=== PATIENT | female | born 1930 | race Caucasian/White ===

== ENCOUNTER 2017-08-04 12:59 | Inpatient (IN) | payer OTHER ==
[~2017-08-04] VITALS: Ht 152.4 cm; Wt 80.3 kg
[2017-08-04 13:03] VITALS: BP 180/64
--- NOTE | 2017-08-04 13:05 | NUR ---
Patient [facility]IBA [facility] from SNF, transferred to bed 3. RN evaluating patient at bedside.
--- NOTE | 2017-08-04 13:10 | NUR ---
86 YO FEMALE BIB EMS FROM [facility] FOR ALTERED LOC. DENIES N/V/D; SKIN IS PINK/WARM/DRY; AAOX4; LUNGS CLEAR BL; HR EVEN AND REGULAR; PT DENIES ANY FEVER, CP, SOB, OR COUGH AT THIS TIME; PATIENT STATES PAIN OF 0/10 AT THIS TIME; VSS; PATIENT POSITIONED FOR COMFORT; HOB ELEVATED; BEDRAILS UP X2; BED DOWN. ER MD MADE AWARE OF PT STATUS.
--- NOTE | 2017-08-04 13:42 | NUR ---
DR SOLO EVALUATING AAO PT WITH SON AT BEDSIDE
[2017-08-04] MEDS ORDERED: NACL 0.9% 1,000 ML IV ONE (13:55)
[2017-08-04 14:15] LABS: BASOPHILS # (AUTO) 0.2 K/uL (0.00-0.22); EOSINOPHILS # (AUTO) 0.2 K/uL (0-0.4); HEMATOCRIT 36.9 % (36-48); HEMOGLOBIN 12.8 g/dL (12.0-16.0); MEAN CORPUSCULAR HEMOGLOBIN 30 pg (27-31); MEAN CORPUSCULAR HGB CONC 35 g/dL (33-37); MEAN CORPUSCULAR VOLUME 87 fL (80-94); MONOCYTES # (AUTO) 0.7 K/uL (0.8-1.0); PLATELET COUNT (AUTO) 224 K/uL (140-450); RED BLOOD CELL COUNT(AUTO) 4.25 MIL/uL (4.20-5.40); RED CELL DISTRIBUTION WIDTH 13.3 % (11.6-13.7); WHITE BLOOD COUNT (AUTO) 7.1 K/uL (4.8-10.8)
[2017-08-04] MEDS ORDERED: POTA10TE30 PO (14:20)
[2017-08-04] MEDS ORDERED: AMLO5TAB PO (14:20)
[2017-08-04] MEDS ORDERED: METO50TE2 PO (14:20)
[2017-08-04] MEDS ORDERED: LOSA100T25 PO (14:20)
[2017-08-04] MEDS ORDERED: ASPI81CT89 PO (14:20)
[2017-08-04] MEDS ORDERED: CALC-53 PO (14:20)
[2017-08-04] MEDS ORDERED: DOCU-299 PO (14:20)
[2017-08-04] MEDS ORDERED: DIT5 PO (14:20)
[2017-08-04] MEDS ORDERED: FERR325E14 PO (14:20)
[2017-08-04] MEDS ORDERED: ACET-2619 PO (14:20)
[2017-08-04] MEDS ORDERED: CEPH250C16 PO (14:20)
[2017-08-04] MEDS ORDERED: POLY10SO3 OP (14:20)
[2017-08-04] MEDS ORDERED: [UNRECOGNIZED DRUG - CODE] PO (14:20)
[2017-08-04 14:29] LABS: ANION GAP 11.7 (8-16); CARBON DIOXIDE 24.1 mmol/L (21-32); CHLORIDE 111 mmol/L (98-107); CREATININE 0.9 mg/dL (0.6-1.3); GLUCOSE 133 mg/dL (74-106); POTASSIUM 3.8 mmol/L (3.5-5.1); SODIUM SERUM 143 mmol/L (136-145); UREA NITROGEN, BLOOD 15 mg/dL (7-18)
[2017-08-04 14:44] LABS: ASPARTATE AMINOTRANSFERASE 28 U/L (15-37); TOTAL BILIRUBIN 0.7 mg/dL (0.0-1.0)
[2017-08-04 15:30] LABS: APPEARANCE,URINE CLEAR (CLEAR); BILIRUBIN,URINE NEGATIVE (NEGATIVE); BLOOD, URINE TRACE-I (NEGATIVE); COLOR,URINE YELLOW (YELLOW); LEUKOCYTE ESTERASE ,URINE NEGATIVE (NEGATIVE); NITRITE, URINE NEGATIVE (NEGATIVE); UGLUCOSE NEGATIVE (NEGATIVE)
[2017-08-04 15:43] LABS: RBC,URINE 0-5 (RARE) /HPF (0-5); WBC,URINE NONE SEEN /HPF (0-5)
[2017-08-04] MEDS: NACL 0.9% 1,000 ML IV SCH (16:16)
[2017-08-04] MEDS ORDERED: ACETAMINOPHEN 325 MG TAB PO PRN (16:20)
[2017-08-04] MEDS ORDERED: HYDROcodone/APAP 7.5/325 MG 1 TAB PO PRN (16:20)
[2017-08-04] MEDS ORDERED: ONDANSETRON 4 MG/2 ML VIAL IVP PRN (16:20)
[2017-08-04 17:20] LABS: PROTHROMBIN TIME 10.1 secs (10.8-13.4)
[2017-08-04 17:23] LABS: BARBITURATE, URINE NEG. ng/ml (NEG <=200); BENZODIAZEPINE, URINE NEG. ng/mL (NEG <=200); CANNABINOID, URINE NEG. ng/mL (NEG <=50); COCAINE, URINE NEG. ng/mL (NEG <=300); OPIATE, URINE NEG. ng/mL (NEG <=2000); PHENCYCLIDINE SCREEN,URINE NEG. ng/mL (NEG <=25)
[2017-08-04 17:26] LABS: FREE T4 (FREE THYROXINE) 1.22 ng/dL (0.76-1.46); MAGNESIUM 1.9 mg/dL (1.8-2.4); PHOSPHORUS 2.6 mg/dL (2.5-4.9); THYROID STIMULATING HORMONE 1.37 uIU/mL (0.34-3.74)
[2017-08-04] MEDS ORDERED: hydrALAZINE 20 MG/ML VIAL IVP ONE (17:30)
--- NOTE | 2017-08-04 18:20 | NUR ---
Patient will be admitted to care of DR HAMILTON. Admited to TELE. Will go to room 122A. Belongings list completed. Report to KIMBERLYN RIGGINS.
[2017-08-04 18:35] VITALS: BP 203/80
--- NOTE | 2017-08-04 18:35 | NUR ---
PT BROUGHT IN FROM ER IN [facility], PT AWAKE, RESP EVEN UNLABORED, SKIN WARM DRY COLOR WNL, IV TO LEFT AC INTACT, SKIN CHECKED, SKIN INTACT, PT AND FAMILY ORIENTED TO ROOM AND FLOOR, CALL BEGUM WITHIN REACH, SIDE RAILS UP, WILL CONTINUE TO MONITOR.
--- NOTE | 2017-08-04 18:45 | NUR ---
HYDRALAZINE GIVEN PER ORDER FOR BP 203/80, HR 88, DR ARREDONDO MADE AWARE. WILL RECHECK BP
[2017-08-04 19:05] VITALS: BP 164/65
--- NOTE | 2017-08-04 19:05 | NUR ---
BP 164/65, HR 79, AFTER HYDRALAZINE IV. PT REMAINS AWAKE ALERT, RESP EVEN UNLABORED, REMAINS ON TITLE PROCESSOR, FAMILY AT BEDSIDE, WILL CONTINUE TO MONITOR.
--- NOTE | 2017-08-04 19:25 | NUR ---
REPORT GIVEN TO GOLD LAYER NURSE, PT IN STABLE CONDITION.
--- NOTE | 2017-08-04 19:26 | NUR ---
RECEIVED REPORT FROM DAY NURSE GILSON SOFIA. PT IN STABLE CONDITION NO S/S OF DISTRESS NOTED. PT JUST ARRIVED TO THE UNIT AT 1835 FROM ER. PT IS AAO AND BUT CONFUSED PER FAMILY. SON STATES THAT PT DOES HAVE EARLY DEMENTIA BUT SHE NORMALLY IS ABLE TO TALK AND IS NOT CONFUSED. SON STATES SHE HAS BEEN CONFUSED AND NOT TALKING MUCH SINCE 08/02/17. PT DX ALTERED MENTAL STATUS. HX PROVIDED BY SON DUE TO MOTHERS CONDITION. PTS DAUGHTER REQUESTS TO STAY AT THE BEDSIDE OVER NIGHT. IV TO L FA 20G, PATENT AND INTACT. SKIN IS INTACT. SKIN IS WARM AND DRY TO TOUCH. PT IS ON ROOM AIR. INITIAL PLAN OF CARE DISCUSSED WITH PT AND FAMILY AT THE BEDSIDE, FAMILY VERBALIZED UNDERSTANDING. ALL SAFETY PRECAUTIONS MET, CALL LIGHT WITHIN REACH, WILL CONTINUE TO MONITOR
[2017-08-04 19:30] VITALS: BP 142/62
--- NOTE | 2017-08-04 19:45 | NUR ---
PAGED DR. GRIER PER FAMILY REQUEST TO TALK TO A
--- NOTE | 2017-08-04 19:55 | NUR ---
DR. GRIER IN TO SEE PT AND TALK WITH THE FAMILY
--- NOTE | 2017-08-04 20:00 | NUR ---
PAGED DR. GRIER TO ASK IF SHE STILL WANTS TO CONTINUE NS 80 ML/HR BECAUSE OF PTS HIGH BLOOD PRESSURE. SHE STATED YES AND TO CARRY OUT ORDERS
--- NOTE | 2017-08-04 20:00 | NUR ---
PTS B/P IS GOING DOWN 142/62 NO S/S OF DISTRESS NOTED. WILL CONTINUE TO MONITOR
[2017-08-04] MEDS: ASPIRIN 81 MG TAB.CHEW PO SCH (20:06)
[2017-08-04] MEDS: DOCUSATE SODIUM 100 MG GELCAP PO SCH (20:07)
--- NOTE | 2017-08-04 20:07 | NUR ---
MEDICATIONS ADMINISTERED WITH APPLE SAUCE. FAMILY GIVEN EDUCATION ON MEDICATION PURPOSES AND SIDE EFFECTS. VERBALIZED UNDERSTANDING. PT IS NON VERBAL AT THIS TIME AND CONFUSED. PT TOLERATED WELL, WILL CONTINUE TO MONITOR
[2017-08-04] MEDS ORDERED: METOPROLOL SUCCINATE 50 MG TABER PO SCH (21:00)
[2017-08-04] MEDS: hydrALAZINE 20 MG/ML VIAL IVP PRN (23:47)
--- NOTE | 2017-08-04 23:47 | NUR ---
PTS BP 162/77 AT THIS TIME. HYDRALAZINE GIVEN PER PRN ORDERS FOR SYSTOLIC ABOVE 160. WILL REASSESS
[2017-08-05] VITALS (7 sets, daily range): BP systolic 134–176; BP diastolic 63–81
--- NOTE | 2017-08-05 00:47 | NUR ---
PTS BP REASSESSED AND IS NOW 156/118, PAGED DR. GRIER
--- NOTE | 2017-08-05 00:50 | NUR ---
DR. GRIER PAGED BACK NO NEW ORDERS AT THIS TIME. WILL CONTINUE TO MONITOR
[2017-08-05] MEDS: NACL 0.9% 1,000 ML IV SCH ×2 (04:46→17:16)
[2017-08-05] MEDS: hydrALAZINE 20 MG/ML VIAL IVP PRN ×2 (06:34→21:22)
--- NOTE | 2017-08-05 06:34 | NUR ---
BP IS 165/90 AT THIS TIME, HYDRALAZINE GIVEN
--- NOTE | 2017-08-05 07:40 | NUR ---
GAVE REPORT TO DAY NURSE BETH SOFIA FOR CONTINUITY OF CARE, PT IN STABLE CONDITION. NO S/S OF DISTRESS NOTED
--- NOTE | 2017-08-05 07:41 | NUR ---
RECEIVED REPORT FROM FURNITURE STAINER NURSE. PATIENT LYING IN BED SLEEPING, AROUSABLE BY VOICE. NO DISTRESS NOTED. FLACC 0. RESPIRATIONS EVEN, UNLABORED, ON ROOM AIR. AAOX1, CONFUSED, SKIN COLOR APPROPRIATE TO ETHNICITY, WARM TO TOUCH. SKIN IS INTACT. LUNGS CTA ON ALL LOBES. IV SITE IS INTACT, PATENT AND INFUSING IVF PER ORDERS. ABDOMEN SOFT, NON-DISTENDED. REVIEWED PLAN OF CARE WITH PATIENT. PATIENT VERBALIZED UNDERSTANDING. SAFETY MEASURES IN PLACE, CALL LIGHT WITHIN REACH FALL PREVENTIONS IN PLACE. WILL CONTINUE TO MONITOR.
[2017-08-05] MEDS ORDERED: TRIMETHOPRIM OP SCH (09:00)
[2017-08-05] MEDS ORDERED: amLODIPine 5 MG TAB PO SCH ×2 (09:00→16:35)
[2017-08-05] MEDS ORDERED: POLYMYXIN B SULF OP SCH (09:00)
--- NOTE | 2017-08-05 09:01 | NUR ---
PATIENT HAS BEEN SCREENED AND CATEGORIZED HIGH NUTRITION RISK. PATIENT WILL BE SEEN WITHIN 1-2 DAYS OF ADMISSION. 08/04/17-08/05/[address]
--- NOTE | 2017-08-05 09:40 | NUR ---
PATIENT LYING DOWN IN BED SLEEPING, AROUSABLE BY VOICE AND SHAKING. NO DISTRESS NOTED. FLACC 0. SCHEDULED MEDICATIONS DUE GIVEN. SAFETY MEASURES IN PLACE, CALL LIGHT WITHIN REACH. WILL CONTINUE TO MONITOR.
[2017-08-05] MEDS: DOCUSATE SODIUM 100 MG GELCAP PO SCH ×2 (09:48→21:00)
[2017-08-05] MEDS: ASPIRIN 81 MG TAB.CHEW PO SCH ×2 (09:48→21:00)
[2017-08-05] MEDS: FERROUS SULFATE 325 MG TABEC PO SCH (09:48)
[2017-08-05] MEDS: OXYBUTYNIN 5 MG TAB PO SCH (09:48)
[2017-08-05] MEDS: CALCIUM CARB/VIT-D 500 MG/200 IU 1 TAB PO SCH (09:48)
[2017-08-05] MEDS: METOPROLOL 50 MG TAB PO SCH ×2 (09:55→21:00)
[2017-08-05] MEDS: LOSARTAN 50 MG TAB PO SCH (09:55)
--- NOTE | 2017-08-05 11:10 | NUR ---
P.T. NOTES RECEIVED P.T. EVAL ORDER, JUST CAME IN, CHART REVIEWED, UPON ARRIVAL AT BEDSIDE PT WAS JUST ABOUT TO HAVE AN US TEST. COMMUNICATED WITH NRSG WILL SEE PT FOR P.T.EVAL TOMORROW ORDER JUST CAME IN AND US TECH STATED ANOTHER 30 MINS TO FINISH TEST/ NURSE AGREEABLE P.T. EVAL ORDER JUST CAME IN. PVE
--- NOTE | 2017-08-05 12:10 | NUR ---
PATIENT LYING DOWN IN BED WITH FAMILY MEMBERS AT BEDSIDE. NO DISTRESS NOTED. CONDITION UNCHANGED. PATIENT CONTINUES TO BE DROWSY. SAFETY MEASURES IN PLACE, CALL LIGHT WITHIN REACH. WILL CONTINUE TO MONITOR.
[2017-08-05 12:39] LABS: BASOPHILS # (AUTO) 0.1 K/uL (0.00-0.22); BASOPHILS % (AUTO) 1.1 % (0.0-2.0); EOSINOPHILS # (AUTO) 0.1 K/uL (0-0.4); EOSINOPHILS % (AUTO) 0.8 % (0.0-4.0); HEMATOCRIT 35.6 % (36-48); HEMOGLOBIN 12.2 g/dL (12.0-16.0); LYMPHOCYTES # (AUTO) 0.8 K/uL (2.5-16.5); LYMPHOCYTES % (AUTO) 8.3 % (20.5-51.1); MEAN CORPUSCULAR HEMOGLOBIN 30 pg (27-31); MEAN CORPUSCULAR HGB CONC 34 g/dL (33-37); MEAN CORPUSCULAR VOLUME 86 fL (80-94); MONOCYTES # (AUTO) 0.9 K/uL (0.8-1.0); MONOCYTES % (AUTO) 9.8 % (1.7-9.3); NEUTROPHILS # (AUTO) 7.2 K/uL (1.8-7.7); PLATELET COUNT (AUTO) 220 K/uL (140-450); RED BLOOD CELL COUNT(AUTO) 4.13 MIL/uL (4.20-5.40); WHITE BLOOD COUNT (AUTO) 9.1 K/uL (4.8-10.8)
[2017-08-05 12:58] LABS: CARBON DIOXIDE 24.5 mmol/L (21-32); CHLORIDE 112 mmol/L (98-107); CREATININE 0.8 mg/dL (0.6-1.3); GLUCOSE 147 mg/dL (74-106); POTASSIUM 3.5 mmol/L (3.5-5.1); SODIUM SERUM 143 mmol/L (136-145); UREA NITROGEN, BLOOD 13 mg/dL (7-18)
[2017-08-05 13:02] LABS: MAGNESIUM 1.9 mg/dL (1.8-2.4); PHOSPHORUS 2.9 mg/dL (2.5-4.9)
--- NOTE | 2017-08-05 14:15 | NUR ---
PATIENT LYING DOWN IN BED SLEEPING, AROUSALBE BY VOICE AND SHAKING. FLACC 0. ASSISTED CLEAN ROOM TECHNICIAN IN CLEANING PATIENT AND REPOSITIONING. SAFETY MEASURES IN PLACE, CALL LIGHT WITHIN REACH. WILL CONTINUE TO MONITOR.
--- NOTE | 2017-08-05 15:00 | NUR ---
FAMILY MEMBER REQUESTED TO SPEAK TO THE PHYSICIAN. DR. HUBBARD NOTIFIED AND MD WILL SEE PATIENT ONCE SHE HAS TIME. WILL CONTINUE TO MONITOR.
--- NOTE | 2017-08-05 15:06 | NUR ---
08/05/17 RD INITIAL ASSESSMENT COMPLETED PLEASE REFER TO NUTRITION ASSESSMENT UNDER CARE ACTIVITY FOR ESTIMATED NUTRITIONAL NEEDS. 1.DIET ORDER TO BE ADJUSTED PER IDENTIFICATION TECHNICIAN RECOMMENDATIONS AFTER SWALLOW EVAL COMPLETED 2.RD TO FOLLOW-UP 2-3 DAYS, HIGH RISK BRITTANY CALLAHAN, KATY
--- NOTE | 2017-08-05 17:00 | NUR ---
PATIENT'S IV LINE IS LEAKING. REMOVED IV LINE WITH MINIMAL BLOOD AND LUMEN COMPLETELY INTACT. NEW IV LINE INSERTED ON LEFT HAND #20 GAUGE ON FIRST ATTEMPT. PATIENT TOLERATED PROCEDURE WELL. SAFETY MEASURES IN PLACE, CALL LIGHT WITHIN REACH. WILL CONTINUE TO MONITOR.
--- NOTE | 2017-08-05 18:49 | NUR ---
* ST NOTE * Pt seen at bedside w/daughter present. Pt asleep upon entering room. Upon awakening, pt alert but lethargic. Bedside dysphagia and oral mechanism exams completed. See evaluation report for further details. Pt unable to tolerate thin liquids via a spoon, demonstrating labial leakage out of oral cavity. Pt accepting 2/2 PO trials of 1-3 CCs of puree apple sauce via a spoon, displaying delays in AP bolus transit as well as delay in swallow initiation and impaired laryngeal elevation at this time. Pt also accepting 2/2 alternating PO trials of nectar-thick apple juice 1-3 CCs at a time as well, once again demonstrating impaired AP bolus transit and delay in swallow initiation. Pt then exhibiting delayed residual cough after conclusion of PO feeding trials, suggesting a moderate oropharyngeal dysphagia. It is recommended pt receive skilled INTAKE SPECIALIST services to further assess pt's tolerance for PO intake at this time, and it is also recommended pt remain NPO at this time pending further therapeutic feeding trials, w/pt's daughter & nsg agreeable. Pt, caregiver/daughter & caregiver/nsg education completed regarding results of evaluation; benefits of receiving skilled INTAKE SPECIALIST services and abiding by NPO status; POC; and prognosis for improvement; with pt indifferent 2/2 to lethargy but caregiver/daughter and caregiver/nsg verbalizing understanding and agreement w/clinician's recommendations. Recommend: - NPO 2/2 to lethargy and pt demonstrating moderate oropharyngeal dysphagia - Complete oral hygiene frequently ST to follow up x1 in next 1-2 days to re-assess pt's tolerance for PO intake. G8996 CM G8997 CL NOMS Level 5 Time In/Out 18:10 - 18:40
--- NOTE | 2017-08-05 19:28 | NUR ---
GAVE REPORT TO ORTHOPEDIC PHYSICIAN NURSE FOR CONTINUITY OF CARE. PATIENT IN STABLE CONDITION.
--- NOTE | 2017-08-05 19:40 | NUR ---
RECEIVED REPORT FROM AM NURSE. PT FAMILY AT BEDSIDE. PT SLEEPING IN BED, AROUSABLE TO TOUCH, ABLE TO WEAKLY OPEN EYES WITH ASSISTANCE, UNABLE TO VERBALIZE NEEDS. COAL HAULER OPERATOR IN PLACE. NO S/S OF ACUTE DISTRESS. SCDs IN PLACE. IV ACCESS ASYMPTOMATIC, PATENT AND INTACT. IVF INFUSING WELL. DISCUSSED AND REVIEWED PLAN OF CARE WITH PT. PT APHASIC AT THIS TIME, PT'S FAMILY VERBALIZED UNDERSTANDING. WILL CONTINUE WITH CONSTANT REINFORCEMENT. ALL NEEDS MET. SAFETY MEASURES ENSURED. CALL LIGHT WITHIN REACH. WILL CONTINUE TO MONITOR.
--- NOTE | 2017-08-05 21:28 | NUR ---
CALLED DR GRIER, MADE MD AWARE THAT PT HAD SWALLOW EVAL TODAY WITH RECOMMENDATION OF NPO DUE TO DYSPHAGIA. ALSO MADE MD AWARE THAT PT IS SLEEPING, LETHARGIC UPON AROUSAL TO TOUCH, UNABLE TO SWALLOW DUE PO MEDICATIONS ASPIRIN, COLACE AND METOPROLOL AT THIS TIME. ALSO MADE MD AWARE OF BP 156/81 AND HR 87, WHICH IS NOT YET WITHIN THE PARAMETERS FOR HYDRALAZINE IVP PRN FOR SBP>160 AND DBP>100. RECEIVED ORDERS TO GIVE HYDRALAZINE IVP PRN AT THIS TIME. ADMINISTERED HYDRALAZINE IVP PRN WITH EDUCATION. WILL CONTINUE WITH CONSTANT REINFORCEMENT. ALL NEEDS MET. IVF INFUSING WELL. SAFETY MEASURES ENSURED. CALL LIGHT WITHIN REACH. WILL CONTINUE TO MONITOR.
--- NOTE | 2017-08-05 23:52 | NUR ---
PT AWAKE, OPENS EYES SPONTANEOUSLY, NONVERBAL. FLACC 0, NO S/S OF ACUTE DISTRESS. SPO2 95% ON ROOM AIR, RR 24 EVEN AND SLIGHTLY TACHYPNIC AT BASELINE. PT INCONTINENT IN URINE, PT CLEANED, TURNED AND REPOSITIONED BY CNAs. PT TOLERATED WELL. ALL NEEDS MET. IVF INFUSING WELL. SAFETY MEASURES ENSURED. CALL LIGHT WITHIN REACH. WILL CONTINUE TO MONITOR.
[2017-08-06] VITALS: BP 154/64
[2017-08-06] MEDS: NACL 0.9% 1,000 ML IV SCH ×2 (02:15→22:23)
[2017-08-06 04:00] VITALS: BP 155/59
--- NOTE | 2017-08-06 04:15 | NUR ---
PT SLEEPING COMFORTABLY, NO S/S OF ACUTE DISTRESS PT INCONTINENT IN URINE, PT CLEANED, TURNED AND REPOSITIONED BY CNAs. PT TOLERATED WELL. ALL NEEDS MET. IVF INFUSING WELL. SAFETY MEASURES ENSURED. CALL LIGHT WITHIN REACH. WILL CONTINUE TO MONITOR.
--- NOTE | 2017-08-06 07:15 | NUR ---
ENDORSED PLAN OF CARE TO AM NURSE. CONDITION STABLE
--- NOTE | 2017-08-06 07:15 | NUR ---
RECIEVED PT FROM FLOWER POT PRESS OPERATOR NURSE. PT STABLE. PT IN HER BED WITH HER EYE CLOSED.
--- NOTE | 2017-08-06 07:35 | NUR ---
Patient's Plan of Care was discussed and reviewed with BIG DATA ADMIN: ARAMIS
[2017-08-06 07:57] LABS: BASOPHILS # (AUTO) 0.1 K/uL (0.00-0.22); BASOPHILS % (AUTO) 1.3 % (0.0-2.0); EOSINOPHILS # (AUTO) 0.2 K/uL (0-0.4); EOSINOPHILS % (AUTO) 2.2 % (0.0-4.0); HEMATOCRIT 36.1 % (36-48); HEMOGLOBIN 12.2 g/dL (12.0-16.0); LYMPHOCYTES # (AUTO) 1.3 K/uL (2.5-16.5); LYMPHOCYTES % (AUTO) 15.8 % (20.5-51.1); MEAN CORPUSCULAR HEMOGLOBIN 30 pg (27-31); MEAN CORPUSCULAR HGB CONC 34 g/dL (33-37); MEAN CORPUSCULAR VOLUME 89 fL (80-94); MONOCYTES # (AUTO) 0.9 K/uL (0.8-1.0); MONOCYTES % (AUTO) 10.8 % (1.7-9.3); NEUTROPHILS # (AUTO) 5.9 K/uL (1.8-7.7); NEUTROPHILS % (AUTO) 69.9 % (42.2-75.2); PLATELET COUNT (AUTO) 217 K/uL (140-450); RED BLOOD CELL COUNT(AUTO) 4.04 MIL/uL (4.20-5.40); RED CELL DISTRIBUTION WIDTH 13.6 % (11.6-13.7); WHITE BLOOD COUNT (AUTO) 8.4 K/uL (4.8-10.8)
[2017-08-06 08:31] LABS: ANION GAP 12.2 (8-16); CHLORIDE 111 mmol/L (98-107); CREATININE 0.7 mg/dL (0.6-1.3); GLUCOSE 120 mg/dL (74-106); POTASSIUM 3.2 mmol/L (3.5-5.1); SODIUM SERUM 143 mmol/L (136-145); UREA NITROGEN, BLOOD 14 mg/dL (7-18)
[2017-08-06 08:35] LABS: MAGNESIUM 1.9 mg/dL (1.8-2.4); PHOSPHORUS 2.5 mg/dL (2.5-4.9)
[2017-08-06] MEDS: FERROUS SULFATE 325 MG TABEC PO SCH (09:00)
[2017-08-06] MEDS: LOSARTAN 50 MG TAB PO SCH (09:00)
[2017-08-06] MEDS: DOCUSATE SODIUM 100 MG GELCAP PO SCH ×2 (09:00→21:00)
[2017-08-06] MEDS ORDERED: POTASSIUM CHLORIDE 10 MEQ TABER PO SCH (09:00)
[2017-08-06] MEDS: CALCIUM CARB/VIT-D 500 MG/200 IU 1 TAB PO SCH (09:00)
[2017-08-06] MEDS: amLODIPine 5 MG TAB PO SCH (09:00)
[2017-08-06] MEDS: OXYBUTYNIN 5 MG TAB PO SCH (09:00)
[2017-08-06] MEDS: ASPIRIN 81 MG TAB.CHEW PO SCH ×2 (09:00→21:00)
[2017-08-06] MEDS: METOPROLOL 50 MG TAB PO SCH ×2 (09:00→21:00)
--- NOTE | 2017-08-06 09:00 | NUR ---
PT STABLE SLEEP FAMILY AT BEDSIDE. ORDER CLAIFIED PT NPO FOR SWALLOW STUDY
--- NOTE | 2017-08-06 12:30 | NUR ---
FAMILY AT BEDSIDE PT UNABLE TO SPEAK. PT UNABLE TO MOVE HER ARMS.
[2017-08-06 13:45] VITALS: BP 164/68
[2017-08-06] MEDS: hydrALAZINE 20 MG/ML VIAL IVP PRN ×2 (16:14→20:38)
--- NOTE | 2017-08-06 17:53 | NUR ---
* ST TX NOTE * Pt seen at bedside w/daughter present. Pt alert but not verbalizing at this time. Pt tolerating 2/2 alternating PO trials of puree apple sauce 1-3 CCs at a time via a spoon as well as 2/2 alternating PO trials of honey-thick apple juice 1-3 CCs at a time via a spoon, all demonstrating 10-20+ second delay in AP bolus transit but exhibiting laryngeal elevation at this time, as compared to yesterday where pt did not demonstrate swallow initiation, laryngeal elevation or excursion. Pt still presenting with 5-10 second delay in swallow initiation however. Pt also exhibiting oral labial leakage of HTL in 2/2 trials. Pt demonstrating minimal to moderate improvement as compared to initial evaluation, but delay in AP bolus transit as well as delay in swallow initiation still place pt at high risk for premature spillage as well as aspiration and thus aspiration PNA. Pt, caregiver/daughter and caregiver/nsg education completed regarding results of skilled ADVANCED PRACTICE PSYCHIATRIC NURSE tx at this time. It is thus recommended pt remain NPO at this time, w/ST to follow up x1 in next 1-5 days to re-assess pt's tolerance for PO intake, w/pt indifferent but daughter & nsg verbalizing understanding and agreement w/clinician's recommendations and POC. Recommend: - Pt remain NPO at this time. ST to ff x1 in next 1-5 days to further assess pt's tolerance for PO intake. G8997 CM NOMS Level 6 Time In/Out 17:30 - 18:00
[2017-08-06 19:01] VITALS: BP 204/70
--- NOTE | 2017-08-06 19:32 | NUR ---
PATIENT REPORT RECEIVED FROM MORNING NURSE AT BEDSIDE. PATEINT'S FAMILY IS AT BEDSIDE. PATIENT IS APHASIC. EYE OPENING IS SPONTANEOUS. NO SIGNS AND SYMPTOMS OF DISTRESS NOTED AT THIS TIME. FLACC-0. IV SITE NOTED ON LEFT HAND, ASYMPTOMATIC, INTACT AND PATENT. PATIENT IS ON ROOM AIR. PLAN OF CARE DISCUSSED WITH PATIENT AND FAMILY, FAMILY VERBALIZED UNDERSTANDING. BED IN LOWEST POSITION, SIDE RAILS UP AND CALL LIGHT WITHIN REACH. WILL CONTINUE TO MONITOR.
--- NOTE | 2017-08-06 21:00 | NUR ---
ACCORDING TO MORNING NURSE, SPEECH THERAPIST RECOMMENDED TO KEEP PATIENT NPO. PATIENT WILL BE RECHECKED BY SPEECH THERAPIST TOMORROW. UNABLE TO ADMINISTER 2100 MEDS DUE TO PATIENT'S IMPAIRED SWALLOWING
--- NOTE | 2017-08-06 22:00 | NUR ---
PATIENT REPOSITIONED FOR COMFORT. PATIENT TOLERATED WELL. WILL CONTINUE TO MONITOR
--- NOTE | 2017-08-06 23:00 | NUR ---
PATIENT VOIDED. PERICARE DONE AND PADS WERE CHANGED. PATIENT TOLERATED WELL. PATIENT REPOSITIONED FOR COMFORT. WILL CONTINUE TO MONITOR.
[2017-08-06] MEDS ORDERED: KCL 20 MEQ/WATER INJ PREMIX 100 ML IV ONE (23:55)
[2017-08-07] VITALS (10 sets, daily range): BP systolic 154–195; BP diastolic 60–81
[2017-08-07] MEDS: hydrALAZINE 20 MG/ML VIAL IVP PRN ×3 (00:39→12:03)
--- NOTE | 2017-08-07 02:00 | NUR ---
PATIENT REPOSITIONED FOR COMFORT. PATIENT TOLERATED WELL. WILL CONTINUE TO MONITOR.
--- NOTE | 2017-08-07 04:00 | NUR ---
PATIENT VOIDED. PERICARE DONE AND PADS WERE CHANGED. PATIENT TOLERATED WELL. PATIENT REPOSITIONED FOR COMFORT. WILL CONTINUE TO MONITOR.
--- NOTE | 2017-08-07 04:00 | NUR ---
PATIENT'S BLOOD PRESSURE CONSISTENTLY ELEVATED DESPITE BEING GIVEN PRN BLOOD PRESSURE MEDS. DR. GRIER AWARE.
--- NOTE | 2017-08-07 05:42 | NUR ---
DR. WOLFF ALSO AWARE OF PATIENT'S BLOOD PRESSURE
[2017-08-07 06:58] LABS: BASOPHILS # (AUTO) 0.1 K/uL (0.00-0.22); BASOPHILS % (AUTO) 0.6 % (0.0-2.0); EOSINOPHILS # (AUTO) 0.2 K/uL (0-0.4); EOSINOPHILS % (AUTO) 1.6 % (0.0-4.0); HEMATOCRIT 35.6 % (36-48); LYMPHOCYTES % (AUTO) 10.3 % (20.5-51.1); MEAN CORPUSCULAR HEMOGLOBIN 30 pg (27-31); MEAN CORPUSCULAR HGB CONC 34 g/dL (33-37); MEAN CORPUSCULAR VOLUME 90 fL (80-94); MONOCYTES # (AUTO) 0.9 K/uL (0.8-1.0); MONOCYTES % (AUTO) 9.8 % (1.7-9.3); NEUTROPHILS # (AUTO) 7.3 K/uL (1.8-7.7); NEUTROPHILS % (AUTO) 77.7 % (42.2-75.2); PLATELET COUNT (AUTO) 194 K/uL (140-450); RED BLOOD CELL COUNT(AUTO) 3.97 MIL/uL (4.20-5.40); RED CELL DISTRIBUTION WIDTH 13.6 % (11.6-13.7); WHITE BLOOD COUNT (AUTO) 9.5 K/uL (4.8-10.8)
--- NOTE | 2017-08-07 07:13 | NUR ---
PATIENT REPORT GIVEN TO MORNING NURSE AT BEDSIDE. PATIENT IS IN STABLE CONDITION.
--- NOTE | 2017-08-07 07:15 | NUR ---
Patient's Plan of Care was discussed and reviewed with AIR CONDITIONING EQUIPMENT MECHANIC: ARAMIS PINEDA LVN.
--- NOTE | 2017-08-07 07:15 | NUR ---
RECIEVE PT CARE FROM PM NURSE. PT LYING IN HER BED WITH HER EYES CLOSED. PT FAMILY AT HER BEDSIDE
[2017-08-07 07:27] LABS: ANION GAP 11.8 (8-16); CARBON DIOXIDE 21.5 mmol/L (21-32); CHLORIDE 113 mmol/L (98-107); CREATININE 0.7 mg/dL (0.6-1.3); GLUCOSE 128 mg/dL (74-106); POTASSIUM 3.3 mmol/L (3.5-5.1); SODIUM SERUM 143 mmol/L (136-145); UREA NITROGEN, BLOOD 17 mg/dL (7-18)
--- NOTE | 2017-08-07 08:00 | NUR ---
PT B/P IS OUT OF RANGE. NOTIFIED
[2017-08-07] MEDS: METOPROLOL 50 MG TAB PO SCH ×3 (09:00→20:57)
[2017-08-07] MEDS: CALCIUM CARB/VIT-D 500 MG/200 IU 1 TAB PO SCH (09:00)
[2017-08-07] MEDS: LOSARTAN 50 MG TAB PO SCH (09:00)
[2017-08-07] MEDS: DOCUSATE SODIUM 100 MG GELCAP PO SCH ×2 (09:00→20:56)
[2017-08-07] MEDS: amLODIPine 5 MG TAB PO SCH (09:00)
[2017-08-07] MEDS: FERROUS SULFATE 325 MG TABEC PO SCH (09:00)
[2017-08-07] MEDS: ASPIRIN 81 MG TAB.CHEW PO SCH ×2 (09:00→20:56)
[2017-08-07] MEDS: OXYBUTYNIN 5 MG TAB PO SCH (09:00)
--- NOTE | 2017-08-07 09:00 | NUR ---
UNABLE TO GIVE MEDS PT IS NPO
[2017-08-07] MEDS ORDERED: POTASSIUM CHLORIDE 40 MEQ, LIDOCAINE 1% 25 MG in NACL 0.9% 250 ML IV ONE (11:00)
--- NOTE | 2017-08-07 12:00 | NUR ---
PT IN HER BED WITH HER EYE CLOSED PT SON IS AT HER BEDSIDE MEDICATION GIVE
--- NOTE | 2017-08-07 12:05 | NUR ---
ADMINISTERED POTASSIUM IV. PATIENT SHOWS NO S/S OF ACUTE DISTRESS AT THIS TIME. ARAMIS VINCENT AND FAMILY AT BEDSIDE. PATIENT BP IS ELEVATED. V/S CHARTED WILL ADMINISTER PRN MEDICATION FOR HIGH BP.
--- NOTE | 2017-08-07 12:07 | NUR ---
ADMINISTERED HYDRALAZINE 10 MG IVP. WILL REASSESS BP IN ONE HR.
--- NOTE | 2017-08-07 12:10 | NUR ---
NOTIFIED ARAMIS PINEDA LVN ABOUT ORDER FOR INSERTION OF NGT AND LET HER KNOW IF ANY ASSISTANCE IS NEEDED.
--- NOTE | 2017-08-07 13:00 | NUR ---
PT B/P CONTINUE TO STAY OUT OF RANGE INFORMED MD
--- NOTE | 2017-08-07 13:03 | NUR ---
ARAMIS VINCENT AWARE OF BP OF 171/60 HR 101. WILL CONTINUE TO MONITOR.
--- NOTE | 2017-08-07 14:30 | NUR ---
PT PULSE 124 AND B/P ELEVATED RECIEVED IV ORDER
[2017-08-07] MEDS ORDERED: LABETALOL 100 MG/20 ML VIAL IVP SCH (14:43)
--- NOTE | 2017-08-07 14:53 | NUR ---
ADMINISTERED IV LABETALOL 10MG FOR BP OF 195/73 HR 124. WILL REASSESS IN 30 MIN.
[2017-08-07] MEDS: NACL 0.9% 1,000 ML IV SCH (17:31)
--- NOTE | 2017-08-07 18:00 | NUR ---
PT B/P IS DECREASED TO 164/70.
--- NOTE | 2017-08-07 19:20 | NUR ---
RECIEVED PATIENT FROM ARAMIS SOFIA . PATIENT ON BED NON VERBAL OPEN HER EYES WHEN NAME CALLED ABLE TO MOVE HER LEFT ARMS AND HAND RIGHT ARMS WEAK. FAMILY ON THE BEDSIDE. NGT INTACT ON LEFT NARE ON ROOM AIR BREATHING EVEN AND UNLABORED. WILL CONTINUE MONITORING AND KEPT PATIENT COMFORTABLE.
--- NOTE | 2017-08-07 19:20 | NUR ---
GAVE REPORT AND CARE TO PM NURSE. INFORMED NURSE OF PT B/P TODAY.
[2017-08-08] MEDS: hydrALAZINE 20 MG/ML VIAL IVP PRN (03:53)
[2017-08-08 04:00] VITALS: BP 158/87
--- NOTE | 2017-08-08 07:06 | NUR ---
VITAL SIGNS MONITORED AND KEPT PATIENT CONFORTABLE OVERNIGHT . WILL PASS ON THE CARE TO DAY SHIFT NURSE.
--- NOTE | 2017-08-08 07:30 | NUR ---
RECEIVED PT ON BED ASLEEP, AROUSABLE, NON VERBAL. NO SIGNS OF PAIN AT THIS TIME. WITH NGT TO LEFT NARES IN PLACE. 5 MLS RESIDUAL NOTED. IV TO LT HAND PATENT AND INTACT. CHEST, DIMINISHED AIR ENTRY TO THE BASES, OTHERWISE CLEAR. ABDOMEN SOFT, BOWEL SOUNDS PRESENT. WILL REPOSITION PT EVERY 2 HRS. PT'S SON AT THE BEDSIDE, INSTRUCTED TO CALL FOR ASSISTANCE, CALL LIGHT WITHIN REACH, VERBALIZED UNDERSTANDING.
[2017-08-08 08:00] VITALS: BP 156/80
[2017-08-08 08:12] LABS: BASOPHILS # (AUTO) 0.1 K/uL (0.00-0.22); BASOPHILS % (AUTO) 0.8 % (0.0-2.0); EOSINOPHILS # (AUTO) 0.1 K/uL (0-0.4); EOSINOPHILS % (AUTO) 1.2 % (0.0-4.0); HEMATOCRIT 34.3 % (36-48); HEMOGLOBIN 11.6 g/dL (12.0-16.0); LYMPHOCYTES # (AUTO) 0.9 K/uL (2.5-16.5); MEAN CORPUSCULAR HEMOGLOBIN 30 pg (27-31); MEAN CORPUSCULAR HGB CONC 34 g/dL (33-37); MEAN CORPUSCULAR VOLUME 89 fL (80-94); MONOCYTES # (AUTO) 1.1 K/uL (0.8-1.0); MONOCYTES % (AUTO) 10.8 % (1.7-9.3); NEUTROPHILS # (AUTO) 8.1 K/uL (1.8-7.7); NEUTROPHILS % (AUTO) 78.2 % (42.2-75.2); PLATELET COUNT (AUTO) 217 K/uL (140-450); RED BLOOD CELL COUNT(AUTO) 3.84 MIL/uL (4.20-5.40); RED CELL DISTRIBUTION WIDTH 13.4 % (11.6-13.7); WHITE BLOOD COUNT (AUTO) 10.3 K/uL (4.8-10.8)
[2017-08-08 08:16] LABS: ANION GAP 12.9 (8-16); CARBON DIOXIDE 23.5 mmol/L (21-32); CHLORIDE 114 mmol/L (98-107); CREATININE 0.8 mg/dL (0.6-1.3); GLUCOSE 133 mg/dL (74-106); POTASSIUM 3.4 mmol/L (3.5-5.1); SODIUM SERUM 147 mmol/L (136-145); UREA NITROGEN, BLOOD 19 mg/dL (7-18)
[2017-08-08] MEDS ORDERED: FERROUS SULFATE 300 MG/5 ML UDC NG SCH ×2 (09:47→09:48)
[2017-08-08] MEDS ORDERED: POTASSIUM CHLORIDE 20% 40 MEQ/15 ML UDC NG SCH (09:55)
[2017-08-08] MEDS: DOCUSATE SODIUM 100 MG GELCAP PO SCH ×2 (10:17→21:13)
[2017-08-08] MEDS: ASPIRIN 81 MG TAB.CHEW PO SCH ×2 (10:17→21:13)
[2017-08-08] MEDS: METOPROLOL 50 MG TAB PO SCH ×2 (10:19→21:13)
[2017-08-08] MEDS: LOSARTAN 50 MG TAB PO SCH (10:20)
[2017-08-08] MEDS: OXYBUTYNIN 5 MG TAB PO SCH (10:21)
[2017-08-08] MEDS: CALCIUM CARB/VIT-D 500 MG/200 IU 1 TAB PO SCH (10:21)
[2017-08-08] MEDS: amLODIPine 5 MG TAB PO SCH (10:21)
--- NOTE | 2017-08-08 10:48 | NUR ---
RD RECOMMENDATIONS: 1.IF/WHEN MEDICALLY APPROPRIATE PER MD DISCRETION, CONSIDER INITIATING ENTERAL FEEDINGS OF FIBERSOURCE HN AT 20 ML/HR, ADVANCE TOLERATED BY 10 ML Q SHIFT TO GOAL RATE OF 50 ML/HR. 2.GOAL ENTERAL FEEDING: FIBERSOURCE HN AT 50 ML/HR X 24 HOURS WITH 120 ML FREE WATER FLUSH Q4H. THIS PROVIDES 1200 ML, 1440 KCAL, 64.8 GM PROTEIN, AND 972 ML FREE WATER. 3.CONSIDER WATER FLUSHES OF 110 ML Q4H TO PROVIDE 660 ML FREE WATER. 4. CONSULT RDN PRN. 5. RD WILL F/U 2-3 DAYS; HIGH RISK. MIKE GARCIA, MS, RDN
[2017-08-08 12:00] VITALS: BP 153/65
--- NOTE | 2017-08-08 12:00 | NUR ---
TUBE FEEDING WITH FIBERSOURCE STARTED. WILL CONTINUE TO MONITOR PT.
[2017-08-08] MEDS: NACL 0.9% 1,000 ML IV SCH (15:04)
[2017-08-08 16:00] VITALS: BP 159/68
--- NOTE | 2017-08-08 17:00 | NUR ---
PT WENT TO CT AND CAME BACK IN STABLE CONDITION.
--- NOTE | 2017-08-08 19:00 | NUR ---
PT RESTING. NO SOB NOTED. NO SIGN SOF PAIN.FAMILY AT THE BEDSIDE.
--- NOTE | 2017-08-08 19:30 | NUR ---
RECEIVED FROM AM RN IN BED WITH FAMILY MEMBERS AROUND . ON NGT AT 20 ML/H OF FIBERSOURCE H. HOB UP 30 DEGREES FOR ASPIRATION PRECAUTIONS. ON TELEMETRY MONITORING. CALL LIGHT WITH IN REACH. FAMILY MEMBER THINKING OF STAYING OVER. ORIENTED TO CALL LIGHT USE FOR ANY HELP THEY MAY NEED . SKIN INTACT.
[2017-08-08 21:06] VITALS: BP 158/69
[2017-08-08 23:52] VITALS: BP 158/65
--- NOTE | 2017-08-08 23:53 | NUR ---
PT. FAMILY LEFT. PT. OPENED EYES WHEN VITAL SING TAKEN. NONE VERBAL AT THIS TIME.ON TELEMETRY MONITORING. NGT IN PLACE AND WITH 20 ML/H OF FIBERSOURCE HN. HOB UP 30 DEGREES FOR ASPIRATION PRECAUTION.
--- NOTE | 2017-08-09 | NUR ---
RESIDUAL CHECK PER NGY WAS 10 ML. INCREASED FEEDING TO 30 ML/H. HOB UP 30 DEGREES FOR ASPIRATION PRECAUTION. NO VOMITING OR COUGHING NOTED. ABLE TO OPEN EYES WHEN TOUCHED AND GOES BACK TO SLEEP. NONE VERBAL AT THIS TIME. TURNED TO SIDES Q 2H BY CNAS. PILLOW SUPPORT TO PRESSURE AREAS.
--- NOTE | 2017-08-09 02:00 | NUR ---
TURNED BY CNAS TO SIDES. PILLOW SUPPORT TO PRESSURE AREAS. TELEMETRY MONITORING. NO SOB. FLACC 0-. HOB UP 30 DEGREES FOR ASPIRATION PRECAUTIONS. BED ALARM ON. NGT IN PLACE .
--- NOTE | 2017-08-09 04:10 | NUR ---
PT. NONE VERBAL. OPENS EYES WHEN TURNED. NGT FEEDING TOLERATING WELL. NO SOB. FLACC 0- NEEDS ANTICIPATED AND MET. TELEMETRY MONITORING.
[2017-08-09 04:32] VITALS: BP 145/60
[2017-08-09] MEDS: NACL 0.9% 1,000 ML IV SCH ×2 (04:43→16:46)
--- NOTE | 2017-08-09 06:26 | NUR ---
TURNED TO SIDES Q 2H. OPENS EYES WHEN TOUCHED. FLACC 0- TELEMETRY MONITORING. NGT IN PLACE. HOB UP 30 DEGREES FOR ASPIRATION PRECAUTION. TELEMETRY MONITORING. NON VERBAL. IVF SITE INTACT AND NO INFILTRATION.
--- NOTE | 2017-08-09 07:40 | NUR ---
ENDORSED TO THE NEXT RN FOR CONTINUITY OF CARE. NEEDS ANTICIPATED AND MET. TOTAL CARE.
--- NOTE | 2017-08-09 07:41 | NUR ---
RECEIVED REPORT FROM DATA ENTRY TECHNICIAN NURSE HELADIO AT BEDSIDE. PT IS ASLEEP. IV INFUSING AT 80ML/HR. FEEDING TUBE RUNNING AT 30ML/HR TO NG-TUBE. NO SIGNS OF DISTRESS. WILL CONTINUE TO MONITOR.
[2017-08-09 08:00] VITALS: BP 162/73
[2017-08-09 08:43] LABS: BASOPHILS # (AUTO) 0.1 K/uL (0.00-0.22); BASOPHILS % (AUTO) 0.7 % (0.0-2.0); EOSINOPHILS # (AUTO) 0.4 K/uL (0-0.4); EOSINOPHILS % (AUTO) 4.4 % (0.0-4.0); HEMATOCRIT 33.7 % (36-48); HEMOGLOBIN 11.5 g/dL (12.0-16.0); LYMPHOCYTES # (AUTO) 0.9 K/uL (2.5-16.5); LYMPHOCYTES % (AUTO) 10.9 % (20.5-51.1); MEAN CORPUSCULAR HEMOGLOBIN 30 pg (27-31); MEAN CORPUSCULAR HGB CONC 34 g/dL (33-37); MEAN CORPUSCULAR VOLUME 88 fL (80-94); MONOCYTES # (AUTO) 0.9 K/uL (0.8-1.0); MONOCYTES % (AUTO) 11.2 % (1.7-9.3); NEUTROPHILS % (AUTO) 72.8 % (42.2-75.2); PLATELET COUNT (AUTO) 201 K/uL (140-450); RED BLOOD CELL COUNT(AUTO) 3.83 MIL/uL (4.20-5.40); RED CELL DISTRIBUTION WIDTH 13.5 % (11.6-13.7); WHITE BLOOD COUNT (AUTO) 8.3 K/uL (4.8-10.8)
[2017-08-09] MEDS: ATORVASTATIN 20 MG TAB NG SCH (09:33)
[2017-08-09] MEDS: ASPIRIN 81 MG TAB.CHEW PO SCH ×2 (09:34→21:10)
[2017-08-09] MEDS: LOSARTAN 50 MG TAB PO SCH (09:34)
[2017-08-09] MEDS: DOCUSATE SODIUM 100 MG GELCAP PO SCH ×2 (09:34→21:10)
[2017-08-09] MEDS: OXYBUTYNIN 5 MG TAB PO SCH (09:35)
[2017-08-09 09:36] LABS: ANION GAP 8.8 (8-16); CARBON DIOXIDE 24.4 mmol/L (21-32); CHLORIDE 114 mmol/L (98-107); CREATININE 0.7 mg/dL (0.6-1.3); GLUCOSE 150 mg/dL (74-106); PHOSPHORUS 2.1 mg/dL (2.5-4.9); POTASSIUM 3.2 mmol/L (3.5-5.1); SODIUM SERUM 144 mmol/L (136-145); UREA NITROGEN, BLOOD 20 mg/dL (7-18)
[2017-08-09] MEDS: METOPROLOL 50 MG TAB PO SCH ×2 (09:36→21:10)
[2017-08-09] MEDS: amLODIPine 5 MG TAB PO SCH (09:36)
[2017-08-09] MEDS: CALCIUM CARB/VIT-D 500 MG/200 IU 1 TAB PO SCH (09:37)
[2017-08-09] MEDS: FERROUS SULFATE 300 MG/5 ML UDC NG SCH (09:37)
[2017-08-09] MEDS: POTASSIUM CHLORIDE 20% 40 MEQ/15 ML UDC NG SCH (09:37)
--- NOTE | 2017-08-09 09:50 | NUR ---
ADMINISTERED SCHEDULED MEDS. CHECKED NG-TUBE RESIDUAL. 5ML NOTED. INCREASED FEEDING TO 40ML/HR. PT TOLERATING FEEDING WELL. PT'S SON IS AT BEDSIDE. NO SIGNS OF DISTRESS. BED IN LOW POSITION, HOB ELEVATED 30 DEGREES. CALL LIGHT WITHIN REACH. WILL CONTINUE TO MONITOR.
--- NOTE | 2017-08-09 11:28 | NUR ---
CHECKED ON PT IN ROOM. PER SON REQUEST TO TAKE OFF MITTEN FROM LEFT HAND. SON STATED HE WILL STAY WITH PT AND MAKE SURE SHE DOES NOT PULL OUT NG-TUBE. INFORMED SON TO NOTIFY RN OR SERGEANT MISSILE CREWMAN IF HE WILL LEAVE ROOM. SON VERBALIZED UNDERSTANDING. PT IS ASLEEP NOW. NO SIGNS OF DISTRESS WILL CONTINUE TO MONITOR.
[2017-08-09 12:00] VITALS: BP 142/71
[2017-08-09 16:00] VITALS: BP 168/72
[2017-08-09] MEDS: hydrALAZINE 20 MG/ML VIAL IVP PRN (16:22)
--- NOTE | 2017-08-09 19:25 | NUR ---
ENDORSED PT TO SUPERVISOR LENDING ACTIVITIES NURSE AMINATA AT BEDSIDE FOR CONTINUITY OF CARE. PT'S DAUGHTER ALEJANDRO AT BEDSIDE. PT IN STABLE CONDITION
--- NOTE | 2017-08-09 19:26 | NUR ---
PATIENT REPORT RECEIVED FROM MORNING NURSE AT BEDSIDE. PATIENT IS AWAKE AND ALERT. APHASIC. NO SIGNS AND SYMPTOMS OF DISTERSS NOTED. PATIENT'S FAMILY IS AT BEDSIDE. NGT TUBE NOTED IN LEFT NARES, WITH TUBE FEEDING RUNNING AT 40ML AN HOUR. IV SITE NOTED ON LEFT HAND WITH IVF INFUSING WELL. SITE IS ASYMPTOMATIC, INTACT AND PATENT. PLAN OF CARE DISCUSSED WITH PATIENT AND FAMILY. QUESTIONS ABOUT CARE ANSWERED. FAMILY VERBALIZED UNDERSTANDING. BED IN SEMI-HILTON'S POSITION, SIDE RAILS UP, AND CALL LIGHT WITHIN REACH. WILL CONTINUE TO MONITOR.
[2017-08-09 20:00] VITALS: BP 155/55
--- NOTE | 2017-08-09 21:00 | NUR ---
TUBE FEEDING PAUSED. CHECKED G TUBE RESIDUAL. <5ML RESIDUAL OBTAINED. ADMINISTERED MEDICATION ORDERED. PATIENT TOLERATED WELL. PATIENT POSITIONED FOR COMFORT. TUBE FEEDING RESUMED. WILL CONTINUE TO MONITOR.
[2017-08-10] VITALS: BP 159/78
--- NOTE | 2017-08-10 03:25 | NUR ---
NG TUBE RESIDUAL CHECKED, OBTAINED 5ML RESIDUAL. NEW TUBE FEEDING STARTED, TO RUN AT 50ML/HR. PATIENT TOLERATED WELL. PATIENT REPOSITIONED FOR COMFORT. BED IN LOWEST POSITION, SIDE RAILS UP AND CALL LIGHT WITHIN REACH. WILL CONTINUE TO MONITOR.
[2017-08-10 04:00] VITALS: BP 169/70
[2017-08-10] MEDS: NACL 0.9% 1,000 ML IV SCH ×2 (05:28→15:12)
[2017-08-10] MEDS: hydrALAZINE 20 MG/ML VIAL IVP PRN ×2 (07:16→16:57)
[2017-08-10 07:23] LABS: CARBON DIOXIDE 24.3 mmol/L (21-32); CHLORIDE 111 mmol/L (98-107); CREATININE 0.7 mg/dL (0.6-1.3); GLUCOSE 167 mg/dL (74-106); POTASSIUM 3.3 mmol/L (3.5-5.1); SODIUM SERUM 142 mmol/L (136-145); UREA NITROGEN, BLOOD 15 mg/dL (7-18)
[2017-08-10 07:24] LABS: BASOPHILS # (AUTO) 0.1 K/uL (0.00-0.22); BASOPHILS % (AUTO) 0.6 % (0.0-2.0); EOSINOPHILS # (AUTO) 0.4 K/uL (0-0.4); EOSINOPHILS % (AUTO) 4.3 % (0.0-4.0); HEMATOCRIT 34.5 % (36-48); HEMOGLOBIN 11.6 g/dL (12.0-16.0); LYMPHOCYTES # (AUTO) 0.9 K/uL (2.5-16.5); LYMPHOCYTES % (AUTO) 9.5 % (20.5-51.1); MEAN CORPUSCULAR HEMOGLOBIN 30 pg (27-31); MEAN CORPUSCULAR HGB CONC 34 g/dL (33-37); MEAN CORPUSCULAR VOLUME 89 fL (80-94); MONOCYTES # (AUTO) 0.8 K/uL (0.8-1.0); MONOCYTES % (AUTO) 8.5 % (1.7-9.3); NEUTROPHILS # (AUTO) 7.3 K/uL (1.8-7.7); NEUTROPHILS % (AUTO) 77.1 % (42.2-75.2); PLATELET COUNT (AUTO) 201 K/uL (140-450); RED BLOOD CELL COUNT(AUTO) 3.88 MIL/uL (4.20-5.40); RED CELL DISTRIBUTION WIDTH 13.3 % (11.6-13.7); WHITE BLOOD COUNT (AUTO) 9.5 K/uL (4.8-10.8)
--- NOTE | 2017-08-10 07:30 | NUR ---
PATIENT REPORT GIVEN TO MORNING NURSE AT BEDSIDE FOR CONTINUITY OF CARE. PATIENT IS IN STABLE CONDITION.
[2017-08-10 07:31] LABS: MAGNESIUM 1.8 mg/dL (1.8-2.4); PHOSPHORUS 2.3 mg/dL (2.5-4.9)
--- NOTE | 2017-08-10 07:35 | NUR ---
ENDORSEMENT RECEIVED FROM VARNISH THINNER NURSE. PATIENT IS AWAKE, EYE OPEN SPONTANEOUSLY. RESPIRATION EVEN, UNLABOR. SKIN DRY AND WARM. NO DISTRESS NOTED. FLACC 0. IV PATENT AND INTACT. CALL LIGHT WITHIN REACH. BED AT LOW POSITION, SIDE RAILS UP.
[2017-08-10 08:00] VITALS: BP 169/59
[2017-08-10] MEDS: FERROUS SULFATE 300 MG/5 ML UDC NG SCH (08:59)
[2017-08-10] MEDS: CALCIUM CARB/VIT-D 500 MG/200 IU 1 TAB PO SCH (08:59)
[2017-08-10] MEDS: LOSARTAN 50 MG TAB PO SCH (09:00)
[2017-08-10] MEDS: HYDROCHLOROTHIAZIDE 25 MG TAB PO SCH (09:00)
[2017-08-10] MEDS: DOCUSATE SODIUM 100 MG GELCAP PO SCH ×2 (09:00→21:10)
[2017-08-10] MEDS: ATORVASTATIN 20 MG TAB NG SCH (09:00)
--- NOTE | 2017-08-10 09:00 | NUR ---
NG TUBE PLACEMENT WAS CONFIRMED WITH AUSCULTATION. RESIDUAL 10ML. PATIENT TOLERATED FEEDING WELL. MEDS WERE GIVEN PER ORDER
[2017-08-10] MEDS: OXYBUTYNIN 5 MG TAB PO SCH (09:01)
[2017-08-10] MEDS: METOPROLOL 50 MG TAB PO SCH ×2 (09:01→21:09)
[2017-08-10] MEDS: amLODIPine 5 MG TAB PO SCH (09:01)
[2017-08-10] MEDS: ASPIRIN 81 MG TAB.CHEW PO SCH ×2 (09:02→21:09)
[2017-08-10 12:00] VITALS: BP 147/63
--- NOTE | 2017-08-10 12:00 | NUR ---
PATIENT IS AWAKE, RESPIRATION EVEN, UNLABOR. NO DISTRESS NOTED. FLACC 0. ORAL SUCTION WAS DONE. VS WAS TAKEN. CALL LIGHT WITHIN REACH
--- NOTE | 2017-08-10 15:52 | NUR ---
PATIENT IS AWAKE, ALERT. RESPIRATION EVEN, UNLABOR. NO DISTRESS NOTED. FLACC 0. FAMILY AT BEDSIDE. CALL LIGHT WITHIN REACH
[2017-08-10 16:00] VITALS: BP 166/61
[2017-08-10] MEDS: metFORMIN 850 MG TAB PO SCH (16:57)
--- NOTE | 2017-08-10 18:29 | NUR ---
PATIENT IS AWAKE, RESPONSIVE TO NAME. RESPIRATION EVEN, UNLABOR. NO DISTRESS NOTED AT THIS TIME. IV PATENT AND INTACT. FAMILY AT BEDSIDE. CALL LIGHT WITHIN REACH
--- NOTE | 2017-08-10 19:24 | NUR ---
ENDORSEMENT GIVEN TO THE MANAGER READING NURSE. PATIENT IS STABLE AT THIS TIME
--- NOTE | 2017-08-10 19:25 | NUR ---
RECEIVED PT FROM [facility] RN PT NONVERBAL RT SIDE WEAKNESS AND BEDBOUND ON TELEMETRY ST, IV ON LEFT ARM INFUSING WELL, NG TUBE WELL TOLERATED FEEDING ZERO RESIDUAL, , REPOSITIOED NOT DISTRESS NOTED
[2017-08-10 20:00] VITALS: BP 144/55
--- NOTE | 2017-08-10 20:00 | NUR ---
DR CEJA WAS NOTIFY LOW K AND HE DID NOT ORDER ANY K AT THIS TIME
--- NOTE | 2017-08-10 21:30 | NUR ---
REPOSITIONED Q2H RELATIVES AT BED SIDE N G TUBE FEEDING WELL TOLERATED ON TELE SR PT OPEN EYES
[2017-08-11] VITALS: BP 118/53
--- NOTE | 2017-08-11 02:38 | NUR ---
PT SINCE MIDNIGHT IS NPO FOR EVALUATION TO INSERT TUBE FEEDING
[2017-08-11] MEDS: NACL 0.9% 1,000 ML IV SCH ×3 (03:08→18:47)
--- NOTE | 2017-08-11 04:25 | NUR ---
PT REPOSITIONED SPONGE BATH GIVEN LINEN CHANGED, PT NPO NG TUBE ZERO RESIDUAL HIGH BP 177/72 MEDIC FOR HIGH BP WILL BE GIVEN ORDER ON TELEMETRY SR
[2017-08-11 04:30] VITALS: BP 177/72
[2017-08-11] MEDS: hydrALAZINE 20 MG/ML VIAL IVP PRN ×2 (05:18→16:30)
--- NOTE | 2017-08-11 06:45 | NUR ---
PT BEDBOUND NON VERBAL RT SIDE WEAKNESS NG TUBE CLAMP PT IS NPO ON TELEMETRY SR NOT DISTRESS NOTED AT THIS TIME
--- NOTE | 2017-08-11 07:08 | NUR ---
RECEIVED REPORT FROM MOBILE MECHANIC NURSE, PT IS RESTING IN BED, A/OX1, DROWSY, IV IS ON THE LEFT HAND, PATENT, INTACT, FLUSHING WELL, NG TUBE ON THE LEFT NARE, FEEDING HELD AT THIS TIME, SKIN IS INTACT, NO S/S OF RESPIRATORY DISTRESS OR DISCOMFORT NOTED, DISCUSSED PLAN OF CARE WITH PT, PT UNABLE TO VERBALIZE UNDERSTANDING, SAFETY/FALL PRECAUTIONS ARE IN PLACE, CALL LIGHT IS WITHIN REACH, WILL CONTINUE TO MONITOR.
[2017-08-11 08:00] VITALS: BP 147/68
[2017-08-11] MEDS: metFORMIN 850 MG TAB PO SCH ×2 (08:00→16:29)
[2017-08-11] MEDS ORDERED: hydrALAZINE 10 MG TAB PO SCH (09:00)
[2017-08-11] MEDS: DOCUSATE SODIUM 100 MG GELCAP PO SCH ×2 (09:00→21:30)
[2017-08-11] MEDS: ASPIRIN 81 MG TAB.CHEW PO SCH ×2 (09:01→21:31)
[2017-08-11] MEDS: METOPROLOL 50 MG TAB PO SCH ×2 (09:01→21:30)
[2017-08-11] MEDS: FERROUS SULFATE 300 MG/5 ML UDC NG SCH (09:01)
[2017-08-11] MEDS: ATORVASTATIN 20 MG TAB NG SCH (09:01)
[2017-08-11] MEDS: amLODIPine 5 MG TAB PO SCH (09:02)
[2017-08-11] MEDS: LOSARTAN 50 MG TAB PO SCH (09:02)
[2017-08-11] MEDS: POTASSIUM CHLORIDE 20% 40 MEQ/15 ML UDC NG SCH (09:02)
[2017-08-11] MEDS: OXYBUTYNIN 5 MG TAB PO SCH (09:02)
[2017-08-11] MEDS: HYDROCHLOROTHIAZIDE 25 MG TAB PO SCH (09:03)
[2017-08-11] MEDS: CALCIUM CARB/VIT-D 500 MG/200 IU 1 TAB PO SCH (09:03)
[2017-08-11] MEDS ORDERED: SODIUM PHOS / POTASSIUM PHOS 1 PKT PDR PO SCH (11:15)
--- NOTE | 2017-08-11 11:15 | NUR ---
SPOKE TO THE PATIENT'S SON (WILFREDO LAONSO), HE GAVE TELEPHONE CONSENT FOR EGD WITH PEG PLACEMENT.
--- NOTE | 2017-08-11 11:25 | NUR ---
PT OFF UNIT TO HAVE PROCEDURE DONE, PT LEFT IN STABLE CONDITION.
[2017-08-11] MEDS ORDERED: fentaNYL 0.05 MG/ML VIAL ONE (11:52)
[2017-08-11] MEDS ORDERED: MIDAZOLAM 2 MG/2 ML VIAL ONE (11:52)
[2017-08-11] MEDS ORDERED: ceFAZolin 1,000 MG VIAL ONE (11:58)
[2017-08-11 12:00] VITALS: BP 154/65
[2017-08-11] MEDS ORDERED: MIDAZOLAM 2 MG/2 ML VIAL IVP ONE (12:30)
[2017-08-11] MEDS ORDERED: fentaNYL 0.05 MG/ML VIAL IVP ONE (12:30)
--- NOTE | 2017-08-11 12:40 | NUR ---
PT RETURNED TO UNIT FROM OR, PT IS RESTING IN BED A/OX1, DROWSY, PATIENT'S NG TUBE WAS REMOVED IN OR, PT HAS PEG TUBE IN PLACE, BP 146/60, HR: 76, O2:98%, TEMP:98.6, R:18, NO S/S OF RESPIRATORY DISTRESS OR DISCOMFORT NOTED, CALL LIGHT IS WITHIN REACH, WILL CONTINUE TO MONITOR.
[2017-08-11] MEDS: hydrALAZINE 25 MG TAB PO SCH ×2 (13:45→17:00)
--- NOTE | 2017-08-11 13:53 | NUR ---
PT NOTES CHART REVIEWED AND CLEARED FOR PT BY RN. 1ST ATTEMPT TO SEE PATIENT AND CURRENTLY NOT PRESENT IN ROOM D/T PROCEDURE, WILL RETURN AT LATER TIME. RETURNED TO PATIENTS ROOM IN AFTERNOON AND IS IN ROOM, BUT CURRENTLY SLEEPING AND DIFFICULT TO AROUSE. NO APPARENT DISTRESS NOTED AT THIS TIME, NO FAMILY IN ROOM. TRAY AND CALL LIGHT IN REACH. WILL FOLLOW UP PATIENT TOMORROW IF POSSIBLE. RN AWARE. PVEx2 Addendum: 08/12/17 at 0915 by Eleni Arana PT PHYSICAL THERAPY CO-SIGN The Physical Therapy Progress Notes documented by Reconciling Clerk have been reviewed. I CONCUR W/METAL ROLLING MILL OPERATOR NOTE Reviewed/Co-Signed by: Eleni Arana PT Documentation Done by: NIMA ABARCA PTA
--- NOTE | 2017-08-11 15:14 | NUR ---
PT IS RESTING IN BED, SLEEPING AT THIS TIME, PATIENT'S FAMILY IS AT BEDSIDE.
--- NOTE | 2017-08-11 15:48 | NUR ---
08/11/17 RD FOLLOW UP COMPLETED PLEASE REFER TO NUTRITION PROGRESS NOTE UNDER CARE ACTIVITY FOR ESTIMATED NUTRITION NEEDS. 1.IF/WHEN MEDICALLY APPROPRIATE PER MD DISCRETION, CONSIDER INITIATING ENTERAL FEEDINGS OF FIBERSOURCE HN AT 20 ML/HR, ADVANCE TOLERATED BY 10 ML Q SHIFT TO GOAL RATE OF 50 ML/HR. 2.GOAL ENTERAL FEEDING: FIBERSOURCE HN AT 50 ML/HR X 24 HOURS WITH 120 ML FREE WATER FLUSH Q4H. THIS PROVIDES 1200 ML, 1440 KCAL, 64.8 GM PROTEIN, AND 972 ML FREE WATER. 3.CONSIDER WATER FLUSHES OF 110 ML Q4H TO PROVIDE 660 ML FREE WATER. 4. CONSULT RDN PRN. 5. RD WILL F/U 2-3 DAYS; HIGH RISK. BRITTANY CALLAHAN RD
[2017-08-11 16:00] VITALS: BP 164/70
--- NOTE | 2017-08-11 18:00 | NUR ---
TUBE FEEDING INITIATED AT THIS TIME 20ML/HR.
--- NOTE | 2017-08-11 18:34 | NUR ---
* ST PVE NOTE * Pt seen at bedside w/family present after receiving clearance from nsg. Nsg's notes reporting pt just returned s/p PEG placement, w/pt thus appearing lethargic and drowsy. Pt asleep upon entering room. Pt minimally arousable, opening her eyes briefly, but closing them again, presenting with lethargy/drowsiness s/p PEG placement procedure. Pt thus not alert enough at this time to be safe for therapeutic feeding trials. Pt, caregivers/family & caregiver/nsg education completed regarding re-attempting skilled TANK INSULATOR RUBBER tx session during next day if pt is more alert/awake, w/pt indifferent but caregivers/family and caregiver/nsg verbalizing understanding and agreement w/clinician's recommendations. ST to follow up x1 in next [address] day. PVE Time In/Out 17:45 - 18:00
--- NOTE | 2017-08-11 19:25 | NUR ---
ENDORSED PT TO DRAMA PROFESSOR NURSE FOR CONTINUITY OF CARE, PT STABLE AT THIS TIME.
--- NOTE | 2017-08-11 19:27 | NUR ---
RECEIVED PT FROM DESEAN RN PT TAIWANESE NON VERBAL S/P CVA RT SIDE WEAKNESS IV ON LEFT HAND INFUSING WELL , G TUBE IN PLACE WELL TOLERATED FEEDING PT OPEN EYES DOES NOT FOLLOW COMMANDS, ON TELMETRY SR INCONTINENT RELATIVES AT [facility] SIDE INITIAL ASSESSMENT DONE
[2017-08-11 20:00] VITALS: BP 156/64
--- NOTE | 2017-08-11 22:00 | NUR ---
PT HAS BEEN MONITORING CLOSE REPOSITIONED Q2H GENERALIZED WEAKNESS ON TELEMETRY SR NOT DISTRESS NOTED, LINEN CHANGED
[2017-08-12 00:30] VITALS: BP 177/56
[2017-08-12] MEDS: hydrALAZINE 20 MG/ML VIAL IVP PRN (01:17)
--- NOTE | 2017-08-12 03:00 | NUR ---
LINEN CHANGED ON TELMETRY SR REPOSITIONED Q2H, G TUBE FEEDING WELL TOLERATED
[2017-08-12 04:00] VITALS: BP 154/59
--- NOTE | 2017-08-12 05:44 | NUR ---
SPOGE BATH GIVEN LINEN CHANGED SR ON TELEMETRY G TUBE FEEDING WELL TOLERATED IV ON LEFT HAND INFUSING WELL NOT DISTRESS NOTED AT THIS TIME
--- NOTE | 2017-08-12 06:59 | NUR ---
REPOSITIONED ON TEL SR NOT DISTRESS NOTED PT WILL BE ENDORSED TO DAY SHIFT NURSE FOR CONTINUITY OF CARE
--- NOTE | 2017-08-12 07:30 | NUR ---
RECEIVED PT FROM KEY ENTRY OPERATOR RN, PT NON VERBAL, S/P CVA RT SIDE WEAKNESS. IV NOTED ON LEFT HAND PATENT, INTACT, INFUSING WELL , G TUBE IN PLACE, FEEDING AT 20ML /HR. PT OPEN EYES DOES NOT FOLLOW COMMANDS, ON TELE. BED IN LOW POSITION, CALL LIGHT WITHIN REACH, NO S/S OF DISTRESS NOTED. WILL CONTINUE TO MONITOR.
[2017-08-12] MEDS: NACL 0.9% 1,000 ML IV SCH (07:38)
[2017-08-12 07:40] LABS: ANION GAP 7.7 (8-16); CARBON DIOXIDE 26.7 mmol/L (21-32); CHLORIDE 107 mmol/L (98-107); CREATININE 0.7 mg/dL (0.6-1.3); GLUCOSE 148 mg/dL (74-106); POTASSIUM 3.4 mmol/L (3.5-5.1); SODIUM SERUM 138 mmol/L (136-145); UREA NITROGEN, BLOOD 15 mg/dL (7-18)
[2017-08-12 07:46] LABS: MAGNESIUM 1.9 mg/dL (1.8-2.4); PHOSPHORUS 2.7 mg/dL (2.5-4.9)
[2017-08-12 07:57] LABS: BASOPHILS # (AUTO) 0.1 K/uL (0.00-0.22); BASOPHILS % (AUTO) 0.8 % (0.0-2.0); EOSINOPHILS # (AUTO) 0.1 K/uL (0-0.4); EOSINOPHILS % (AUTO) 1.1 % (0.0-4.0); HEMOGLOBIN 11.2 g/dL (12.0-16.0); LYMPHOCYTES # (AUTO) 0.9 K/uL (2.5-16.5); MEAN CORPUSCULAR HEMOGLOBIN 30 pg (27-31); MEAN CORPUSCULAR HGB CONC 34 g/dL (33-37); MEAN CORPUSCULAR VOLUME 89 fL (80-94); MONOCYTES % (AUTO) 9.4 % (1.7-9.3); NEUTROPHILS # (AUTO) 8.2 K/uL (1.8-7.7); NEUTROPHILS % (AUTO) 79.7 % (42.2-75.2); PLATELET COUNT (AUTO) 197 K/uL (140-450); RED BLOOD CELL COUNT(AUTO) 3.69 MIL/uL (4.20-5.40); RED CELL DISTRIBUTION WIDTH 13.2 % (11.6-13.7); WHITE BLOOD COUNT (AUTO) 10.4 K/uL (4.8-10.8)
[2017-08-12 08:00] VITALS: BP 152/62
--- NOTE | 2017-08-12 08:20 | NUR ---
G TUBE RESIDUAL 5ML, CHANGED G-TUBE FEEDING RATE FROM 20ML/HR TO 30ML/HR.
[2017-08-12] MEDS ORDERED: hydrALAZINE 25 MG TAB PO SCH ×2 (09:00→17:00)
[2017-08-12] MEDS ORDERED: HYDROCHLOROTHIAZIDE 25 MG TAB PO SCH (09:00)
[2017-08-12] MEDS: FERROUS SULFATE 300 MG/5 ML UDC NG SCH (09:02)
[2017-08-12] MEDS: LOSARTAN 50 MG TAB PO SCH (09:03)
[2017-08-12] MEDS: CALCIUM CARB/VIT-D 500 MG/200 IU 1 TAB PO SCH (09:03)
[2017-08-12] MEDS: OXYBUTYNIN 5 MG TAB PO SCH (09:05)
[2017-08-12] MEDS: metFORMIN 850 MG TAB PO SCH ×2 (09:06→17:03)
[2017-08-12] MEDS: METOPROLOL 50 MG TAB PO SCH (09:06)
[2017-08-12] MEDS: amLODIPine 5 MG TAB PO SCH (09:06)
[2017-08-12] MEDS: ASPIRIN 81 MG TAB.CHEW PO SCH (09:06)
[2017-08-12] MEDS: ATORVASTATIN 20 MG TAB NG SCH (09:07)
[2017-08-12] MEDS: DOCUSATE SODIUM 100 MG GELCAP PO SCH (09:07)
--- NOTE | 2017-08-12 09:31 | NUR ---
FAXED INQUIRY TO [facility] [phone] PHONE [phone]
[2017-08-12 12:00] VITALS: BP 136/44
--- NOTE | 2017-08-12 13:00 | NUR ---
G TUBE RESIDUAL 2ML, PT TOLERATED FEEDING WELL. INCREASE RATE TO 40ML/HR.
[2017-08-12] MEDS ORDERED: ORE25 PO (13:52)
[2017-08-12] MEDS ORDERED: ATOR20TA40 NG (13:52)
[2017-08-12] MEDS ORDERED: METO50TA99 PO (13:52)
[2017-08-12] MEDS ORDERED: HYDR-4420 PO (13:52)
[2017-08-12] MEDS ORDERED: AMLO5TAB4 PO (13:52)
[2017-08-12] MEDS ORDERED: METF850T PO (13:52)
[2017-08-12 16:00] VITALS: BP 157/65
--- NOTE | 2017-08-12 16:00 | NUR ---
ADVANCED FEEDING TO 50 ML/HR, 10ML RESIDUAL, PT TOLERATED WELL.
--- NOTE | 2017-08-12 16:08 | NUR ---
CM NOTE PATIENT TO BE TRANSPORTED VIA GURNEY BY [facility] GOING TO [facility]. ETA 1800. LISS HUANG MADE AWARE.
--- NOTE | 2017-08-12 17:00 | NUR ---
CALLED [facility] TO GIVEN REPORT. REPORT GIVEN TO SHALONDA. ACCEPTING DR IS DR SOLO.
--- NOTE | 2017-08-12 18:10 | NUR ---
PT DISCHARGED PER MD ORDER. EMT IS HERE TO TRANSFER PT BACK TO [facility]. PT VITALS TAKEN. REPORT GIVEN. PT UNABLE TO SIGN PAPERWORK. NO S/S OF ACUTE DISTRESS NOTED. PT'S IV WAS DC'ED, TIP INTACT, PRESSURE APPLIED.
== END 2017-08-12 18:15 | DRG 64 ==
LOC: MED 12:59 → MTU 16:00
PROVIDERS: ADMIT Family Medicine Sports Medicine; ATTEND Family Medicine Sports Medicine
PROC: 0DH63UZ Insertion of Feeding Device into Stomach, Percutaneous Approach (ICD-10-PCS; principal; 2017-08-04)
DX: I63.9 Cerebral infarction, unspecified (principal); N17.0 Acute kidney failure with tubular necrosis; E87.0 Hyperosmolality and hypernatremia; E44.0 Moderate protein-calorie malnutrition; I67.4 Hypertensive encephalopathy; R13.10 Dysphagia, unspecified; E66.01 Morbid (severe) obesity due to excess calories; G90.9 Disorder of the autonomic nervous system, unspecified; E83.39 Other disorders of phosphorus metabolism; G30.9 Alzheimer's disease, unspecified; F02.80 Dementia in other diseases classified elsewhere, unspecified severity, without behavioral disturbance, psychotic disturbance, mood disturbance, and anxiety; E78.5 Hyperlipidemia, unspecified; M81.0 Age-related osteoporosis without current pathological fracture; N32.81 Overactive bladder; E86.1 Hypovolemia; E87.6 Hypokalemia; I10 Essential (primary) hypertension; K29.70 Gastritis, unspecified, without bleeding; F41.9 Anxiety disorder, unspecified; Z87.440 Personal history of urinary (tract) infections; Z86.73 Personal history of transient ischemic attack (TIA), and cerebral infarction without residual deficits; Z68.34 Body mass index [BMI] 34.0-34.9, adult; Z79.2 Long term (current) use of antibiotics; Z79.82 Long term (current) use of aspirin; Z79.899 Other long term (current) drug therapy; Z91.19 Patient's noncompliance with other medical treatment and regimen
CPT/HCPCS: 36415; 70450; 71010; 80048; 80053; 80305; 81001; 81025; 82140; 82150; 82948; 83036; 83605; 83690; 83735; 83880; 84100; 84439; 84443; 84484; 85025; 85610; 85730; 86677; 87040; 87081; 87086; 88305; 88312; 88313; 92526; 92610; 93005; 93880; 93976; 96360; 97110; 97140; 97530; 97799; 99285; C1758; J0360; J0690; J2001; J2250; J3010; J3480; J3490; J7030; Q0092